=== PATIENT | male | born 1960 | race Hispanic/Latino ===

== ENCOUNTER → 2017-12-26 | Outpatient (CLI) | payer OTHER | END | disposition home or self-care (01) | LOC: RAH 07:13 | PROVIDERS: ATTEND Nurse Practitioner Family | DX: M13.871 Other specified arthritis, right ankle and foot (principal); M77.8 Other enthesopathies, not elsewhere classified | CPT/HCPCS: 73721 ==

== ENCOUNTER 2020-08-15 07:42 | Inpatient (IN) | payer OTHER ==
[~2020-08-15] VITALS: Ht 160 cm; Wt 61.7 kg
[2020-08-15 09:04] LABS: BASOPHILS % (AUTO) 0.2 % (0.0-5.0); HEMATOCRIT 42.9 % (42-54); LYMPHOCYTES % (AUTO) 13.7 % (21.0-51.0); MEAN CORPUSCULAR HEMOGLOBIN 31.6 pg (27.0-33.0); MEAN CORPUSCULAR HGB CONC 35.9 g/dL (32.0-36.0); MEAN CORPUSCULAR VOLUME 88.1 fL (79-99); MONOCYTES % (AUTO) 5.9 % (3.0-13.0); PLATELET COUNT (AUTO) 100 K/uL (130-400); RED BLOOD CELL COUNT(AUTO) 4.87 MIL/uL (4.50-6.20); RED CELL DISTRIBUTION WIDTH 12.2 % (11.0-15.5); WHITE BLOOD COUNT (AUTO) 4.4 K/uL (4.8-10.8)
[2020-08-15 09:14] LABS: CARBON DIOXIDE 30 mmol/L (21-32); CHLORIDE 100 mmol/L (101-111); GLOMERULAR FILTR. RATE CALC 80 mL/min (>60); GLUCOSE,RANDOM 101 mg/dL (70-105); POTASSIUM 3.8 mmol/L (3.5-5.1); SODIUM SERUM 135 mmol/L (136-145); UREA NITROGEN, BLOOD 8 mg/dL (7-18)
[2020-08-15 09:16] LABS: INR 1.14 (0.85-1.15); PROTHROMBIN TIME 12.1 SEC (9.6-11.6)
[2020-08-15 09:18] LABS: PARTIAL THROMBOPLASTIN TIME 33.8 SEC (26.3-35.5)
[2020-08-15 09:27] LABS: ALANINE AMINOTRANSFERASE 39 U/L (12-78); ALBUMIN 2.8 g/dL (3.5-5.0); ASPARTATE AMINOTRANSFERASE 63 U/L (10-37); BILIRUBIN,TOTAL 1.1 mg/dL (0.2-1.0); CREATINE KINASE, TOTAL 382 U/L (21-232); LACTATE DEHYDROGENASE 373 U/L (81-234); MYOGLOBIN 151 ng/mL (10-92); TOTAL PROTEIN, SERUM 6.5 g/dL (6.0-8.3); TROPONIN I < 0.04 ng/mL (0.00-0.06)
[2020-08-15 10:15] LABS: ERYTHROCYTE SEDIMENTATION RATE 34 MM/HR (0-20)
[2020-08-15] MEDS ORDERED: ALBUTEROL INHALER 90MCG/INH IH ONE (10:52)
[2020-08-15] MEDS ORDERED: FAMOTIDINE 20MG VIAL IV ONE (10:53)
[2020-08-15] MEDS ORDERED: ENOXAPARIN SODIUM 80 MG/0.8 ML SQ ONE (10:53)
[2020-08-15] MEDS ORDERED: AZITHROMYCIN 500MG+NS 250ML 250 ML IV ONE (10:53)
[2020-08-15] MEDS ORDERED: DEXAMETHASONE SOD PHOSPHATE 10MG/ML 1ML VIAL ONE (10:53)
[2020-08-15] MEDS ORDERED: KCL 20 MEQ ERTAB PO PRN (11:45)
[2020-08-15] MEDS ORDERED: ALBUTEROL 0.083% 2.5 MG/3 ML INH IH PRN (11:45)
[2020-08-15] MEDS ORDERED: ERGOCALCIFEROL (VITAMIN D2) 50,000 UNIT CAPSULE PO SCH (11:45)
[2020-08-15] MEDS ORDERED: LACTATED RINGERS 1000ML 1,000 ML IV SCH (11:45)
[2020-08-15] MEDS ORDERED: MAG/ALUM/SIMETH 30 ML UDCUP PO PRN (11:45)
[2020-08-15] MEDS ORDERED: DIPHENHYDRAMINE HCL 25 MG CAPSULE PO PRN (11:45)
[2020-08-15] MEDS ORDERED: GUAIFENESIN-DM 200/20 MG 10 ML PO PRN (11:45)
[2020-08-15] MEDS ORDERED: ACETAMINOPHEN 325 MG TAB PO PRN ×2 (11:45)
[2020-08-15] MEDS ORDERED: NITROGLYCERIN 0.4 MG SL TAB SL PRN (11:45)
[2020-08-15] MEDS ORDERED: ONDANSETRON 4MG INJ IV PRN (11:45)
[2020-08-15] MEDS ORDERED: DiphenhydrAMINE HCL 50 MG/ML VIAL IV PRN (11:45)
[2020-08-15] MEDS ORDERED: GUAIFENESIN-CODEINE 5 ML SYRUP PO PRN (11:45)
[2020-08-15] MEDS ORDERED: POTASSIUM CHLORIDE 10% ELIXIR 20 MEQ/15 ML UDCUP PO PRN (11:45)
[2020-08-15] MEDS ORDERED: POTASSIUM CHLORIDE 20MEQ/100ML 100 ML IV PRN ×2 (11:45)
[2020-08-15] MEDS ORDERED: LACTULOSE 20 GM/30 ML UDCUP PO PRN (11:45)
[2020-08-15] MEDS ORDERED: ERGOCALCIFEROL (VITAMIN D2) 50,000 UNIT CAPSULE ONE (13:20)
[2020-08-15] MEDS ORDERED: CEFTRIAXONE 1G VIAL ONE (13:20)
[2020-08-15] MEDS ORDERED: LACTATED RINGERS 1000ML 1,000 ML IV ONE (13:20)
[2020-08-15] MEDS ORDERED: 0.9%NACL 50ML 50 ML IV ONE (13:21)
[2020-08-15] MEDS ORDERED: ACETYLCYSTEINE 600 MG CAPSULE ONE (19:51)
[2020-08-15] MEDS ORDERED: 0.9% NACL 250ML 250 ML IV ONE (23:34)
[2020-08-16] MEDS ORDERED: GUAIFENESIN-DM 200/20 MG 10 ML ONE ×2 (00:21→20:50)
[2020-08-16] MEDS ORDERED: 0.9% NACL 250ML 250 ML IV ONE (00:43)
[2020-08-16] MEDS ORDERED: DiphenhydrAMINE HCL 50 MG/ML VIAL ONE (01:26)
[2020-08-16] MEDS ORDERED: SOLU-MEDROL 40MG VIAL ONE (01:34)
[2020-08-16 01:56] LABS: ABG BASE EXCESS -4.1 mmol/L (-2.0-3.0); ABG HCO3 19.3 mmol/L (21.0-28.0); ABG OXYGEN SATURATION 99.4 % (95.0-99.0); ABG PCO2 31 mmHg (35-48)
[2020-08-16] MEDS ORDERED: ACETAMINOPHEN 325 MG TAB ONE (02:53)
[2020-08-16] MEDS ORDERED: CEFTRIAXONE 1G VIAL ONE ×2 (03:30→08:20)
[2020-08-16 05:37] LABS: BASOPHILS % (AUTO) 0.4 % (0.0-5.0); HEMATOCRIT 42.8 % (42-54); LYMPHOCYTES % (AUTO) 6.7 % (21.0-51.0); MEAN CORPUSCULAR HEMOGLOBIN 31.6 pg (27.0-33.0); MEAN CORPUSCULAR HGB CONC 36.2 g/dL (32.0-36.0); MEAN CORPUSCULAR VOLUME 87.3 fL (79-99); MONOCYTES % (AUTO) 12.7 % (3.0-13.0); NEUTROPHILS % (AUTO) 79.8 % (40.0-77.0); PLATELET COUNT (AUTO) 100 K/uL (130-400); RED CELL DISTRIBUTION WIDTH 12.2 % (11.0-15.5); WHITE BLOOD COUNT (AUTO) 2.7 K/uL (4.8-10.8)
[2020-08-16 06:04] LABS: ALBUMIN 2.5 g/dL (3.5-5.0); BILIRUBIN,TOTAL 0.8 mg/dL (0.2-1.0); POTASSIUM 3.5 mmol/L (3.5-5.1); TOTAL PROTEIN, SERUM 6.4 g/dL (6.0-8.3)
[2020-08-16 07:17] LABS: LYMPHOCYTES % (MANUAL) 15 % (22-44); MAN.DIFF COMMENT-IMPRESSION MANUAL DIFFERENTIAL; MONOCYTES % (MANUAL) 8 % (2-9); PLATELET MORPHOLOGY COMMENT DECREASED; SEGMENTED NEUTROPHILS % 77 % (40-70)
[2020-08-16 07:22] LABS: CRP QUANTITATIVE 179.7 mg/L (0.00-9.0)
[2020-08-16] MEDS ORDERED: ACETYLCYSTEINE 600 MG CAPSULE ONE ×2 (08:19→20:43)
[2020-08-16] MEDS ORDERED: ASCORBIC ACID 500 MG TAB ONE (08:19)
[2020-08-16] MEDS ORDERED: ZINC SULFATE 220 CAPSULE ONE (08:20)
[2020-08-16] MEDS ORDERED: ENOXAPARIN SODIUM 40 MG/0.4 ML SYRINGE SQ ONE (08:20)
[2020-08-16] MEDS ORDERED: DEXAMETHASONE SOD PHOSPHATE 10MG/ML 1ML VIAL ONE (08:43)
[2020-08-16] MEDS ORDERED: ENOXAPARIN SODIUM 40 MG/0.4 ML SYRINGE SQ SCH (09:00)
[2020-08-16] MEDS ORDERED: PHARMACY COMMUNICATION MISC SCH (10:30)
[2020-08-16] MEDS ORDERED: GUAI120L62 PO (15:27)
[2020-08-16] MEDS ORDERED: BENZ-70 PO (15:27)
[2020-08-16] MEDS ORDERED: ACET-66 PO (15:27)
[2020-08-16] MEDS ORDERED: CEFU250T87 PO (15:27)
[2020-08-16] MEDS: HYDROMORPHONE HCL 2 MG TAB PO SCH (21:00)
[2020-08-16] MEDS ORDERED: ENOXAPARIN SODIUM 1 MG/KG SQ SCH (21:00)
[2020-08-17] MEDS ORDERED: CEFTRIAXONE 1G VIAL ONE ×2 (03:40→12:34)
[2020-08-17 05:53] LABS: BASOPHILS % (AUTO) 0.2 % (0.0-5.0); HEMATOCRIT 44.2 % (42-54); LYMPHOCYTES % (AUTO) 6.5 % (21.0-51.0); MEAN CORPUSCULAR HEMOGLOBIN 31.7 pg (27.0-33.0); MEAN CORPUSCULAR VOLUME 88.2 fL (79-99); MONOCYTES % (AUTO) 5.4 % (3.0-13.0); NEUTROPHILS % (AUTO) 87.4 % (40.0-77.0); PLATELET COUNT (AUTO) 125 K/uL (130-400); RED BLOOD CELL COUNT(AUTO) 5.01 MIL/uL (4.50-6.20); RED CELL DISTRIBUTION WIDTH 12.6 % (11.0-15.5); WHITE BLOOD COUNT (AUTO) 6.1 K/uL (4.8-10.8)
[2020-08-17 06:32] LABS: ALBUMIN 2.6 g/dL (3.5-5.0); BILIRUBIN,TOTAL 0.8 mg/dL (0.2-1.0); CREATININE 0.8 mg/dL (0.5-1.5); CRP QUANTITATIVE 130.5 mg/L (0.00-9.0); POTASSIUM 3.8 mmol/L (3.5-5.1); TOTAL PROTEIN, SERUM 6.7 g/dL (6.0-8.3)
[2020-08-17] MEDS ORDERED: ASCORBIC ACID 500 MG TAB ONE (07:06)
[2020-08-17] MEDS ORDERED: ZINC SULFATE 220 CAPSULE ONE (07:06)
[2020-08-17] MEDS ORDERED: ACETYLCYSTEINE 600 MG CAPSULE ONE ×2 (07:06→19:42)
[2020-08-17] MEDS ORDERED: ENOXAPARIN SODIUM 40 MG/0.4 ML SYRINGE SQ ONE (07:07)
[2020-08-17] MEDS ORDERED: HYDROMORPHONE HCL 2 MG TAB ONE (07:38)
[2020-08-17] MEDS ORDERED: DEXAMETHASONE SOD PHOSPHATE 10MG/ML 1ML VIAL ONE (12:34)
[2020-08-17] MEDS ORDERED: ENOXAPARIN SODIUM 80 MG/0.8 ML SQ ONE (19:42)
[2020-08-17 20:45] VITALS: BP 159/79
[2020-08-17] MEDS: ASCORBIC ACID 500 MG TAB PO SCH (20:45)
[2020-08-17] MEDS: DEXAMETHASONE SOD PHOSPHATE 4 MG/ML 1ML VIAL IVP SCH (20:45)
[2020-08-17] MEDS: ZINC SULFATE 220 CAPSULE PO SCH (20:45)
[2020-08-17] MEDS: CEFTRIAXONE 1G VIAL IVP SCH (20:45)
[2020-08-17] MEDS: ACETYLCYSTEINE 600 MG CAPSULE PO SCH (20:56)
[2020-08-17] MEDS: ENOXAPARIN SODIUM 80 MG/0.8 ML SQ SCH (20:57)
[2020-08-17] MEDS: HYDROMORPHONE HCL 2 MG TAB PO SCH (21:00)
[2020-08-17 23:49] VITALS: BP 122/61
[2020-08-18] MEDS: CEFTRIAXONE 1G VIAL IVP SCH ×2 (00:03→12:25)
[2020-08-18 03:15] VITALS: BP 132/63
[2020-08-18 07:00] VITALS: BP 135/64
[2020-08-18 07:17] LABS: BASOPHILS % (AUTO) 0.1 % (0.0-5.0); HEMATOCRIT 41.3 % (42-54); LYMPHOCYTES % (AUTO) 5.5 % (21.0-51.0); MEAN CORPUSCULAR HEMOGLOBIN 31.5 pg (27.0-33.0); MEAN CORPUSCULAR HGB CONC 35.6 g/dL (32.0-36.0); MEAN CORPUSCULAR VOLUME 88.6 fL (79-99); MONOCYTES % (AUTO) 4.3 % (3.0-13.0); NEUTROPHILS % (AUTO) 89.8 % (40.0-77.0); PLATELET COUNT (AUTO) 150 K/uL (130-400); RED BLOOD CELL COUNT(AUTO) 4.66 MIL/uL (4.50-6.20); RED CELL DISTRIBUTION WIDTH 12.5 % (11.0-15.5); WHITE BLOOD COUNT (AUTO) 6.7 K/uL (4.8-10.8)
[2020-08-18 07:36] LABS: ALBUMIN 2.3 g/dL (3.5-5.0); BILIRUBIN,TOTAL 0.8 mg/dL (0.2-1.0); CREATININE 0.9 mg/dL (0.5-1.5); CRP QUANTITATIVE 58.1 mg/L (0.00-9.0); POTASSIUM 4.2 mmol/L (3.5-5.1); TOTAL PROTEIN, SERUM 5.7 g/dL (6.0-8.3)
[2020-08-18] MEDS: ACETYLCYSTEINE 600 MG CAPSULE PO SCH ×2 (08:20→20:18)
[2020-08-18] MEDS: ASCORBIC ACID 500 MG TAB PO SCH (08:21)
[2020-08-18] MEDS: ZINC SULFATE 220 CAPSULE PO SCH (08:21)
[2020-08-18] MEDS: ENOXAPARIN SODIUM 80 MG/0.8 ML SQ SCH ×2 (08:28→20:18)
[2020-08-18] MEDS: HYDROMORPHONE HCL 2 MG TAB PO SCH ×2 (08:29→20:21)
[2020-08-18 11:00] VITALS: BP 136/65
[2020-08-18] MEDS: DEXAMETHASONE SOD PHOSPHATE 4 MG/ML 1ML VIAL IVP SCH (12:25)
[2020-08-18 16:00] VITALS: BP 139/74
[2020-08-18 20:00] VITALS: BP 136/64
[2020-08-19] VITALS: BP 141/76
[2020-08-19] MEDS: CEFTRIAXONE 1G VIAL IVP SCH ×3 (00:21→23:47)
[2020-08-19 04:00] VITALS: BP 129/69
[2020-08-19] MEDS: ASCORBIC ACID 500 MG TAB PO SCH (08:27)
[2020-08-19] MEDS: ACETYLCYSTEINE 600 MG CAPSULE PO SCH ×2 (08:27→20:47)
[2020-08-19] MEDS: ZINC SULFATE 220 CAPSULE PO SCH (08:27)
[2020-08-19] MEDS: HYDROMORPHONE HCL 2 MG TAB PO SCH ×2 (08:27→21:00)
[2020-08-19] MEDS: ENOXAPARIN SODIUM 80 MG/0.8 ML SQ SCH ×2 (08:28→20:48)
[2020-08-19] MEDS: DEXAMETHASONE SOD PHOSPHATE 4 MG/ML 1ML VIAL IVP SCH (12:06)
[2020-08-19 13:01] VITALS: BP 135/68
[2020-08-19 17:16] VITALS: BP 125/69
[2020-08-19 20:00] VITALS: BP 113/57
[2020-08-20] VITALS (7 sets, daily range): BP systolic 109–129; BP diastolic 57–80
[2020-08-20 05:18] LABS: BASOPHILS % (AUTO) 0.5 % (0.0-5.0); HEMATOCRIT 42.2 % (42-54); LYMPHOCYTES % (AUTO) 9.6 % (21.0-51.0); MEAN CORPUSCULAR HEMOGLOBIN 31.1 pg (27.0-33.0); MEAN CORPUSCULAR HGB CONC 35.3 g/dL (32.0-36.0); MEAN CORPUSCULAR VOLUME 88.1 fL (79-99); MONOCYTES % (AUTO) 5.3 % (3.0-13.0); NEUTROPHILS % (AUTO) 81.8 % (40.0-77.0); PLATELET COUNT (AUTO) 179 K/uL (130-400); RED BLOOD CELL COUNT(AUTO) 4.79 MIL/uL (4.50-6.20); RED CELL DISTRIBUTION WIDTH 12.4 % (11.0-15.5)
[2020-08-20 05:28] LABS: CREATININE 0.9 mg/dL (0.5-1.5); POTASSIUM 4.3 mmol/L (3.5-5.1)
[2020-08-20] MEDS ORDERED: PHARMACY COMMUNICATION MISC SCH (07:45)
[2020-08-20] MEDS: HYDROMORPHONE HCL 2 MG TAB PO SCH (09:00)
[2020-08-20] MEDS: ASCORBIC ACID 500 MG TAB PO SCH (09:28)
[2020-08-20] MEDS: ZINC SULFATE 220 CAPSULE PO SCH (09:28)
[2020-08-20] MEDS: ACETYLCYSTEINE 600 MG CAPSULE PO SCH ×2 (09:28→20:04)
[2020-08-20] MEDS: ENOXAPARIN SODIUM 80 MG/0.8 ML SQ SCH ×2 (09:28→20:04)
[2020-08-20 11:58] LABS: CRP QUANTITATIVE 50.7 mg/L (0.00-9.0)
[2020-08-20] MEDS: CEFTRIAXONE 1G VIAL IVP SCH (12:06)
[2020-08-20] MEDS: DEXAMETHASONE SOD PHOSPHATE 4 MG/ML 1ML VIAL IVP SCH (12:07)
[2020-08-20] MEDS ORDERED: REMDESIVIR (EUA) 520 200 MG in 0.9% NACL 250ML 250 ML IV ONE (16:00)
[2020-08-20] MEDS ORDERED: COMPOUND IV REFRIGERATED 1 EACH IVSOLN MISC PRN (16:00)
[2020-08-21] VITALS (7 sets, daily range): BP systolic 99–126; BP diastolic 51–69
[2020-08-21] MEDS: CEFTRIAXONE 1G VIAL IVP SCH ×2 (00:17→12:05)
[2020-08-21 05:32] LABS: BASOPHILS % (AUTO) 0.6 % (0.0-5.0); EOSINOPHILS % (AUTO) 0.2 % (0.0-8.0); HEMATOCRIT 44.4 % (42-54); LYMPHOCYTES % (AUTO) 11.5 % (21.0-51.0); MEAN CORPUSCULAR HEMOGLOBIN 31.4 pg (27.0-33.0); MEAN CORPUSCULAR HGB CONC 35.6 g/dL (32.0-36.0); MEAN CORPUSCULAR VOLUME 88.3 fL (79-99); MONOCYTES % (AUTO) 5.2 % (3.0-13.0); NEUTROPHILS % (AUTO) 77.7 % (40.0-77.0); PLATELET COUNT (AUTO) 230 K/uL (130-400); RED BLOOD CELL COUNT(AUTO) 5.03 MIL/uL (4.50-6.20); RED CELL DISTRIBUTION WIDTH 12.5 % (11.0-15.5); WHITE BLOOD COUNT (AUTO) 6.2 K/uL (4.8-10.8)
[2020-08-21 05:55] LABS: ALBUMIN 2.2 g/dL (3.5-5.0); BILIRUBIN,TOTAL 0.8 mg/dL (0.2-1.0); CREATININE 0.9 mg/dL (0.5-1.5); CRP QUANTITATIVE 61.1 mg/L (0.00-9.0); POTASSIUM 4.2 mmol/L (3.5-5.1)
[2020-08-21] MEDS ORDERED: PHARMACY COMMUNICATION MISC SCH (06:00)
[2020-08-21] MEDS: ACETYLCYSTEINE 600 MG CAPSULE PO SCH ×2 (08:31→20:08)
[2020-08-21] MEDS: ZINC SULFATE 220 CAPSULE PO SCH (08:32)
[2020-08-21] MEDS: ENOXAPARIN SODIUM 80 MG/0.8 ML SQ SCH ×2 (08:32→20:08)
[2020-08-21] MEDS: ASCORBIC ACID 500 MG TAB PO SCH (08:32)
[2020-08-21] MEDS: DEXAMETHASONE SOD PHOSPHATE 4 MG/ML 1ML VIAL IVP SCH (12:05)
[2020-08-21] MEDS: REMDESIVIR (EUA) 520 100 MG in 0.9% NACL 250ML 250 ML IV SCH (15:38)
[2020-08-22] MEDS: CEFTRIAXONE 1G VIAL IVP SCH (00:11)
[2020-08-22 04:00] VITALS: BP 111/41
[2020-08-22] MEDS: ZINC SULFATE 220 CAPSULE PO SCH (09:56)
[2020-08-22] MEDS: ASCORBIC ACID 500 MG TAB PO SCH (09:56)
[2020-08-22] MEDS: ACETYLCYSTEINE 600 MG CAPSULE PO SCH ×2 (09:56→19:53)
[2020-08-22] MEDS: ENOXAPARIN SODIUM 80 MG/0.8 ML SQ SCH ×2 (09:57→19:56)
[2020-08-22 10:21] VITALS: BP 106/57
[2020-08-22] MEDS: DEXAMETHASONE SOD PHOSPHATE 4 MG/ML 1ML VIAL IVP SCH (14:35)
[2020-08-22 15:11] LABS: ALBUMIN 2.4 g/dL (3.5-5.0); BILIRUBIN,TOTAL 0.7 mg/dL (0.2-1.0); CREATININE 1.1 mg/dL (0.5-1.5); POTASSIUM 3.9 mmol/L (3.5-5.1); TOTAL PROTEIN, SERUM 6.3 g/dL (6.0-8.3)
[2020-08-22] MEDS: REMDESIVIR (EUA) 520 100 MG in 0.9% NACL 250ML 250 ML IV SCH (17:01)
[2020-08-22 18:20] VITALS: BP 104/66
[2020-08-22 19:05] VITALS: BP 92/59
[2020-08-22 23:59] VITALS: BP 114/57
[2020-08-23 03:55] VITALS: BP 96/49
[2020-08-23 06:45] LABS: BASOPHILS % (AUTO) 0.9 % (0.0-5.0); HEMATOCRIT 44.6 % (42-54); LYMPHOCYTES % (AUTO) 12.7 % (21.0-51.0); MEAN CORPUSCULAR HEMOGLOBIN 31.2 pg (27.0-33.0); MEAN CORPUSCULAR VOLUME 89.2 fL (79-99); NEUTROPHILS % (AUTO) 75.3 % (40.0-77.0); PLATELET COUNT (AUTO) 292 K/uL (130-400); RED CELL DISTRIBUTION WIDTH 12.9 % (11.0-15.5); WHITE BLOOD COUNT (AUTO) 5.4 K/uL (4.8-10.8)
[2020-08-23 06:59] LABS: ALBUMIN 2.2 g/dL (3.5-5.0); BILIRUBIN,DIRECT 0.2 mg/dL (0.0-0.3); BILIRUBIN,TOTAL 0.9 mg/dL (0.2-1.0); POTASSIUM 4.6 mmol/L (3.5-5.1); TOTAL PROTEIN, SERUM 5.8 g/dL (6.0-8.3)
[2020-08-23 07:34] VITALS: BP 147/78
[2020-08-23] MEDS: DEXAMETHASONE 4 MG TAB PO SCH (09:05)
[2020-08-23] MEDS: ACETYLCYSTEINE 600 MG CAPSULE PO SCH ×2 (09:05→21:13)
[2020-08-23] MEDS: ZINC SULFATE 220 CAPSULE PO SCH (09:05)
[2020-08-23] MEDS: ENOXAPARIN SODIUM 80 MG/0.8 ML SQ SCH ×2 (09:05→21:13)
[2020-08-23] MEDS: ASCORBIC ACID 500 MG TAB PO SCH (09:05)
[2020-08-23 10:23] VITALS: BP 104/53
[2020-08-23 15:58] VITALS: BP 107/63
[2020-08-23] MEDS: REMDESIVIR (EUA) 520 100 MG in 0.9% NACL 250ML 250 ML IV SCH (16:21)
[2020-08-23 20:00] VITALS: BP 110/64
[2020-08-24 01:14] VITALS: BP 140/71
[2020-08-24 04:00] VITALS: BP 120/69
[2020-08-24 05:38] LABS: BASOPHILS % (AUTO) 0.4 % (0.0-5.0); HEMATOCRIT 45.4 % (42-54); LYMPHOCYTES % (AUTO) 10.3 % (21.0-51.0); MEAN CORPUSCULAR HEMOGLOBIN 31.9 pg (27.0-33.0); MEAN CORPUSCULAR HGB CONC 35.5 g/dL (32.0-36.0); MEAN CORPUSCULAR VOLUME 89.9 fL (79-99); MONOCYTES % (AUTO) 5.2 % (3.0-13.0); NEUTROPHILS % (AUTO) 79.7 % (40.0-77.0); PLATELET COUNT (AUTO) 305 K/uL (130-400); RED BLOOD CELL COUNT(AUTO) 5.05 MIL/uL (4.50-6.20); RED CELL DISTRIBUTION WIDTH 13.1 % (11.0-15.5)
[2020-08-24 05:47] LABS: CREATININE 0.9 mg/dL (0.5-1.5); CRP QUANTITATIVE 30.8 mg/L (0.00-9.0); POTASSIUM 4.2 mmol/L (3.5-5.1)
[2020-08-24] MEDS ORDERED: ASPI-1005 PO (06:53)
[2020-08-24] MEDS ORDERED: DEXA6TAB PO (06:53)
[2020-08-24 08:30] VITALS: BP 123/68
[2020-08-24] MEDS: ACETYLCYSTEINE 600 MG CAPSULE PO SCH (08:47)
[2020-08-24] MEDS: ZINC SULFATE 220 CAPSULE PO SCH (08:47)
[2020-08-24] MEDS: DEXAMETHASONE 4 MG TAB PO SCH (08:48)
[2020-08-24] MEDS: ENOXAPARIN SODIUM 80 MG/0.8 ML SQ SCH (08:49)
[2020-08-24] MEDS: ASCORBIC ACID 500 MG TAB PO SCH (08:49)
[2020-08-24 13:28] LABS: ALBUMIN 2.3 g/dL (3.5-5.0); BILIRUBIN,DIRECT 0.2 mg/dL (0.0-0.3); BILIRUBIN,TOTAL 0.8 mg/dL (0.2-1.0); TOTAL PROTEIN, SERUM 5.9 g/dL (6.0-8.3)
[2020-08-24] MEDS: REMDESIVIR (EUA) 520 100 MG in 0.9% NACL 250ML 250 ML IV SCH (15:30)
== END 2020-08-24 18:55 | disposition home or self-care (01) | DRG 177 ==
LOC: EDH 07:42 → EDHIP 11:38 → 4AH 08-17 20:31
PROVIDERS: ADMIT Family Medicine; ATTEND Family Medicine
PROC: XW13325 Transfusion of Convalescent Plasma (Nonautologous) into Peripheral Vein, Percutaneous Approach, New Technology Group 5 (ICD-10-PCS; principal; 2020-08-15)
PROC: XW033E5 Introduction of Remdesivir Anti-infective into Peripheral Vein, Percutaneous Approach, New Technology Group 5 (ICD-10-PCS; 2020-08-20)
DX: U07.1 COVID-19 (principal); J96.01 Acute respiratory failure with hypoxia; J12.82 Pneumonia due to coronavirus disease 2019; M62.82 Rhabdomyolysis; D68.59 Other primary thrombophilia; E78.5 Hyperlipidemia, unspecified; I25.10 Atherosclerotic heart disease of native coronary artery without angina pectoris; I10 Essential (primary) hypertension; K59.00 Constipation, unspecified; Z88.8 Allergy status to other drugs, medicaments and biological substances
CPT/HCPCS: 36415; 36600; 71045; 71250; 80048; 80053; 80076; 82550; 82728; 82803; 82948; 83615; 83874; 84145; 84484; 85025; 85378; 85610; 85651; 85730; 86078; 86140; 86850; 86900; 86901; 86927; 87040; 87426; 93005; G0378; J0456; J0696; J1100; J1200; J1650; J2920; J3490; J7050; J7120; J8540